=== PATIENT | male | born 1960 | race Caucasian/White ===

== ENCOUNTER → 2019-12-12 | Outpatient (CLI) | payer OTHER ==
[2019-11-02 10:59] VITALS: BP 104/59
[~2019-12-12] MED LIST: ACET325T9 PO; ATOR40TA59 PO; CARV3.1210 PO; CHOL500051 PO; CLIN150C14 PO; CYCL10TA2 PO; ENOX40DI3 SQ; INSU100I11 SQ; INSU100V37 SQ; INSU100V6 SQ; INSU100V8 SQ; LACT1CAP19 PO; LISI2.5T PO; METF10007 PO; MIRT7.5T8 PO; MULT-690 PO; PANT40TA77 PO; PIPE3.377 IV
[2019-12-12 14:18] LABS: BASO # 0.1 x10^3/uL (0.0-0.2); BASO % 1 % (0-3); EOS # 0.2 x10^3/uL (0.0-0.7); EOS % 3 % (0-3); HEMATOCRIT 38.2 % (39.0-53.0); LYMPH # 2.9 x10^3/uL (1.0-4.8); LYMPH % 36 % (24-48); MEAN CORPUSCULAR HEMOGLOBIN 30 pg (25-35); MEAN CORPUSCULAR HGB CONC 34 g/dL (31-37); MEAN CORPUSCULAR VOLUME 87 fL (79-100); MONO # 0.5 x10^3/uL (0.0-1.1); MONO % 6 % (0-9); NEUT # 4.4 x10^3/uL (1.8-7.7); NEUT % 54 % (31-73); PLATELET COUNT 289 x10^3/uL (140-400); RED BLOOD COUNT 4.38 x10^6/uL (4.30-5.70); RED CELL DISTRIBUTION WIDTH 14.7 % (11.5-14.5); WHITE BLOOD COUNT 8.2 x10^3/uL (4.0-11.0)
[2019-12-12 15:19] LABS: C-REACTIVE PROTEIN 5.1 mg/L (0-3.3); CREATININE 1.3 mg/dL (0.7-1.3); GFR 56.9
== END | disposition home or self-care (01) ==
LOC: LAB 14:00
PROVIDERS: ATTEND Internal Medicine Infectious Disease
DX: M86.8X7 Other osteomyelitis, ankle and foot (principal)
CPT/HCPCS: 36415; 82565; 84520; 85025; 86140

== ENCOUNTER → 2019-12-19 | Outpatient (CLI) | payer OTHER ==
[2019-11-02 10:59] VITALS: BP 104/59
[2019-12-19 10:59] LABS: BASO # 0.1 x10^3/uL (0.0-0.2); BASO % 1 % (0-3); EOS # 0.2 x10^3/uL (0.0-0.7); EOS % 2 % (0-3); HEMATOCRIT 34.6 % (39.0-53.0); HEMOGLOBIN 11.8 g/dL (13.0-17.5); LYMPH # 2.7 x10^3/uL (1.0-4.8); LYMPH % 30 % (24-48); MEAN CORPUSCULAR HEMOGLOBIN 30 pg (25-35); MEAN CORPUSCULAR HGB CONC 34 g/dL (31-37); MEAN CORPUSCULAR VOLUME 87 fL (79-100); MONO # 0.8 x10^3/uL (0.0-1.1); MONO % 9 % (0-9); NEUT # 5.2 x10^3/uL (1.8-7.7); NEUT % 58 % (31-73); PLATELET COUNT 309 x10^3/uL (140-400); RED BLOOD COUNT 4.01 x10^6/uL (4.30-5.70); RED CELL DISTRIBUTION WIDTH 14.1 % (11.5-14.5); WHITE BLOOD COUNT 8.9 x10^3/uL (4.0-11.0)
[2019-12-19 11:15] LABS: C-REACTIVE PROTEIN 139.5 mg/L (0-3.3); CREATININE 1.4 mg/dL (0.7-1.3); GFR 52.2
== END | disposition home or self-care (01) ==
LOC: LAB 10:29
PROVIDERS: ATTEND Internal Medicine Infectious Disease
DX: M86.8X7 Other osteomyelitis, ankle and foot (principal)
CPT/HCPCS: 36415; 82565; 84520; 85025; 86140

== ENCOUNTER → 2020-01-02 | Outpatient (CLI) | payer OTHER ==
[2019-11-02 10:59] VITALS: BP 104/59
[2020-01-02 11:15] LABS: BASO # 0.1 x10^3/uL (0.0-0.2); BASO % 1 % (0-3); EOS # 0.1 x10^3/uL (0.0-0.7); EOS % 2 % (0-3); HEMATOCRIT 35.5 % (39.0-53.0); HEMOGLOBIN 11.9 g/dL (13.0-17.5); LYMPH # 2.6 x10^3/uL (1.0-4.8); LYMPH % 29 % (24-48); MEAN CORPUSCULAR HEMOGLOBIN 28 pg (25-35); MEAN CORPUSCULAR HGB CONC 34 g/dL (31-37); MEAN CORPUSCULAR VOLUME 85 fL (79-100); MONO # 0.5 x10^3/uL (0.0-1.1); MONO % 6 % (0-9); NEUT # 5.5 x10^3/uL (1.8-7.7); NEUT % 62 % (31-73); PLATELET COUNT 466 x10^3/uL (140-400); RED CELL DISTRIBUTION WIDTH 13.9 % (11.5-14.5); WHITE BLOOD COUNT 8.9 x10^3/uL (4.0-11.0)
[2020-01-02 11:31] LABS: C-REACTIVE PROTEIN 86.1 mg/L (0-3.3); CREATININE 1.3 mg/dL (0.7-1.3); GFR 56.7
== END | disposition home or self-care (01) ==
LOC: LAB 10:24
PROVIDERS: ATTEND Internal Medicine Infectious Disease
DX: M86.8X7 Other osteomyelitis, ankle and foot (principal)
CPT/HCPCS: 36415; 82565; 84520; 85025; 86140